=== PATIENT | male | born 1965 | race American Indian/Alaskan Native ===

== ENCOUNTER 2017-10-29 12:07 | Emergency (ER) | payer OTHER ==
[2017-10-29 12:55] VITALS: BP 177/99
[2017-10-29 13:13] LABS: Basophils # (Auto) 0.1 K/mm3 (0.0-0.1); Basophils % (Auto) 0.8 % (0.0-1.8); Eosinophils # (Auto) 0.4 K/mm3 (0.0-0.4); Eosinophils % (Auto) 4.9 % (0.0-4.3); Hematocrit 46.4 % (35.5-45.6); Hemoglobin 15.8 gm/dl (11.8-15.2); Lymphocytes # (Auto) 3.5 K/mm3 (1.2-5.4); Lymphocytes % (Auto) 46.8 % (13.4-35.0); Mean Corpuscular HGB Conc 34 % (32-34); Mean Corpuscular Hemoglobin 31 pg (28-32); Mean Corpuscular Volume 92 fl (84-94); Monocytes # (Auto) 0.5 K/mm3 (0.0-0.8); Monocytes % (Auto) 6.7 % (0.0-7.3); Platelet Count 358 K/mm3 (140-440); Red Blood Count 5.05 M/mm3 (3.65-5.03); Red Cell Distribution Width 13.3 % (13.2-15.2)
[2017-10-29 13:34] LABS: BUN/Creatinine Ratio 15; Blood Urea Nitrogen 12 mg/dL (9-20); Calcium 9.2 mg/dL (8.4-10.2); Hemolysis Index 4
[2017-10-29] MEDS ORDERED: CATAPRES PO ONE (15:18)
--- NOTE | 2017-10-29 15:45 | Emergency Department Report ---
HPI - General Chief Complaint: Dizziness Time Seen by Provider: 10/29/17 14:55 - HPI HPI: The patient is a 52-year-old male presents for evaluation of dizziness. The patient has a history of hypertension, noncompliant with medication regimen. The patient reports dizziness for the past 3 days, mild in severity, exacerbated with position changes or standing, improved with supine position and rest. The patient denies fever, headache, neck pain, paresthesias, focal motor weakness, ear pain, tinnitus, chest pain, hemoptysis, dyspnea, abdominal pain, confusion or altered mental status, or recent URI or diarrhea. ED Past Medical Hx - Past Medical History Previous Medical History?: Yes Hx Hypertension: Yes - Surgical History Past Surgical History?: Yes Additional Surgical History: tonsillectomy - Social History Smoking Status: Current Every Day Smoker Substance Use Type: Alcohol, Marijuana, Prescribed - Medications Home Medications: Home Medications Medication Instructions Recorded Confirmed Last Taken Type HYDROcodone/APAP 5-325 [[place] 1 each PO Q6HR PRN #20 tablet 10/17/15 Unknown Rx 5/325] amLODIPine [Norvasc] 10 mg PO DAILY 10/17/15 10/17/15 10/16/15 History Hydrochlorothiazide [HCTZ] 25 mg PO QDAY #30 tablet 10/29/17 Unknown Rx amLODIPine [Norvasc] 5 mg PO DAILY #31 tab 10/29/17 Unknown Rx ED Review of Systems ROS: Stated complaint: DIZZY/SEEING SPOTS Other details as noted in HPI Constitutional: Reports dizziness denies: fever ENT: denies: throat or neck pain Respiratory: denies: cough, shortness of breath Cardiovascular: denies: chest pain Endocrine: denies unexplained weight loss or gain Gastrointestinal: denies: abdominal pain, nausea Genitourinary: denies: dysuria Musculoskeletal: denies: leg swelling Skin: denies: rash Neurological: denies: headache Hematological/Lymphatic: denies: easy bleeding or easy bruising Psych: denies sadness or hopelessness Physical Exam - Physical Exam Vital Signs: Vital Signs 10/29/17 12:51 Temperature 98.4 F Pulse Rate 64 Respiratory 18 Rate Blood Pressure 177/99 O2 Sat by Pulse 98 Oximetry Physical Exam: General: well-nourished, well-developed, no acute distress Head: Normocephalic, atraumatic Eyes: normal sclera EOMI, PERRL no nystagmus, ENT: Mucous membranes are pale and dry Neck: trachea midline, neck supple, No neck stiffness, no cervical adenopathy Respiratory: Breath sounds equal bilaterally, no wheezing, rales, or rhonchi Cardio: S1 and S2 present, no murmurs, rubs, gallops, capillary refill is delayed Abdomen: Normoactive bowel sounds, soft abdomen, no rigidity, no guarding or rebound tenderness Musc: No pitting edema Skin: No rash Neuro: alert oriented x4, normal cognition, speech normal, no facial drooping, no uvula or tongue deviation on protrusion, no deficit with rotation of neck or shoulder shrug, no obvious gross motor deficit in the upper or lower extremities with flexion or extension at the shoulder, elbow, wrist, hip, knee, or ankle bilaterally, no obvious gross sensation deficit to crude touch or 2 pt discrimination, 2+ symmetric reflexes on DTR testing, no coordination deficit with eupqgt-tq-lwhk or verz-yn-cmgi testing, romberg negative, patient able to to ambulate without abnormal gait Psych: Normal affect ED Course Vital Signs 10/29/17 12:51 Temperature 98.4 F Pulse Rate 64 Respiratory 18 Rate Blood Pressure 177/99 O2 Sat by Pulse 98 Oximetry ED Medical Decision Making - Lab Data Result diagrams: 10/29/17 13:03 10/29/17 13:03 - Medical Decision Making The patient was seen and examined by myself. The patient is placed on a incident response analyst and continuous pulse ox. On initial evaluation, the patient was found to be in no distress. Evaluation orders were placed. The patient given a tablet of clonidine for treatment of his elevated blood pressure. Lab results reveal elevated hemoglobin and hematocrit, consistent with hemoconcentration and exam findings of dehydration, and otherwise labs were grossly unremarkable. The patient declined normal saline fluid bolus for treatment of his dehydration. The patient was reevaluated and reported that their symptoms were markedly improved. The patient is stable for discharge with outpatient follow- up. The patient is given follow-up and return instructions. The patient expressed understanding and agreed with the plan. The patient is discharged in stable condition. Critical care attestation.: If time is entered above; I have spent that time in minutes in the direct care of this critically ill patient, excluding procedure time. ED Disposition Clinical Impression: Orthostatic dizziness, Hypertensive urgency Disposition: [id number] TO HOME OR SELFCARE Is pt being admited?: No Does the pt Need Aspirin: No Condition: Stable Instructions: Hypertension (ED), Chronic Hypertension (ED), Dizziness (ED) Prescriptions: amLODIPine [Norvasc] 5 mg PO DAILY #31 tab Hydrochlorothiazide [HCTZ] 25 mg PO QDAY #30 tablet Referrals: PRIMARY CARE [Primary Care Provider] - 3-5 Days Time of Disposition: 15:41
[2017-10-29 17:11] LABS: Bilirubin,Urine NEG (Negative); Blood,Urine NEG (Negative); Color,Urine Yellow (Yellow); Mucus,Urine FEW /HPF; Protein,Urine <15 mg/dL mg/dL (Negative); Urobilinogen,Urine < 2.0 mg/dL (<2.0)
[2017-10-29 22:23] LABS: WBC,Urine < 1.0 /HPF (0.0-6.0)
== END 2017-10-29 15:49 | disposition home or self-care (01) ==
LOC: ED 12:07
DX: I10 Essential (primary) hypertension (principal); R42 Dizziness and giddiness; F17.200 Nicotine dependence, unspecified, uncomplicated
CPT/HCPCS: 36415; 80048; 81001; 84484; 85025; 93005; 93010; 99283

== ENCOUNTER 2017-12-22 17:58 | Emergency (ER) | payer OTHER ==
[2017-12-22] MEDS ORDERED: MOTRIN PO ONE (22:31)
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
[2017-12-22 22:55] VITALS: BP 160/92
== END 2017-12-22 23:41 | disposition home or self-care (01) ==
LOC: ED 17:58
DX: S16.1XXA Strain of muscle, fascia and tendon at neck level, initial encounter (principal); M54.5 Low back pain; M62.838 Other muscle spasm; M25.521 Pain in right elbow; M25.561 Pain in right knee; M25.562 Pain in left knee; I10 Essential (primary) hypertension; F17.200 Nicotine dependence, unspecified, uncomplicated; Z90.89 Acquired absence of other organs; V89.2XXA Person injured in unspecified motor-vehicle accident, traffic, initial encounter; Y93.89 Activity, other specified; Y99.8 Other external cause status; Y92.410 Unspecified street and highway as the place of occurrence of the external cause
CPT/HCPCS: 99282

== ENCOUNTER 2021-02-25 15:11 | Emergency (ER) | payer SELFPAY ==
[2021-02-25] MEDS ORDERED: TETANUS,DIPH,PERTUSS(ACELL) VACCINE 0.5 ML SYRINGE IM ONE (17:16)
[2021-02-25] MEDS ORDERED: HYDROcodone/ACETAMINOPHEN 10-325MG TAB PO ONE (17:16)
[2021-02-25 17:33] VITALS: BP 162/88
--- NOTE | 2021-02-25 17:33 | Emergency Department Report ---
ED Laceration HPI - HPI Chief Complaint: Wound/Laceration Stated Complaint: HAND CUT Time Seen by Provider: 02/25/21 17:06 Occurred When: Today Location: Upper Extremity Severity: mild Tetanus Status: Not up to Date Laceration Symptoms: Yes Pain, No Foreign Body Sensation, No Numbness, No Weakness Other History: This is a 55-year-old male nontoxic, well nourished in appearance, no acute signs of distress presents to the ED with c/o of left middle finger laceration. Patient stated he was throwing away a toilet and cut his finger. Patient denies decreased sensation or range of motion. Patient stated bleeding is under control. Denies any numbness, tingling, fever, chills, nausea, vomiting, chest pain, shortness of breath, headache or stiff neck. Patient denies any allergies to significant past medical history. Patient is that he is not up-to-date with tetanus. ED Review of Systems ROS: Stated complaint: HAND CUT Other details as noted in HPI Constitutional: denies: chills, fever Eyes: denies: eye pain, eye discharge, vision change ENT: denies: ear pain, throat pain Respiratory: denies: cough, shortness of breath, wheezing Cardiovascular: denies: chest pain, palpitations Endocrine: no symptoms reported Gastrointestinal: denies: abdominal pain, nausea, diarrhea Genitourinary: denies: urgency, dysuria Musculoskeletal: denies: back pain, joint swelling, arthralgia Skin: denies: rash, lesions Neurological: denies: headache, weakness, paresthesias Psychiatric: denies: anxiety, depression Hematological/Lymphatic: denies: easy bleeding, easy bruising ED Past Medical Hx - Past Medical History Previous Medical History?: No Hx Hypertension: Yes - Surgical History Past Surgical History?: Yes Additional Surgical History: tonsillectomy - Social History Smoking Status: Current Every Day Smoker Substance Use Type: Alcohol - Medications Home Medications: Home Medications Medication Instructions Recorded Confirmed Last Taken Type HYDROcodone/APAP 5-325 [[place] 1 each PO Q6HR PRN #20 tablet 10/17/15 Unknown Rx 5/325] amLODIPine [Norvasc] 10 mg PO DAILY 10/17/15 10/17/15 10/16/15 History amLODIPine [Norvasc] 5 mg PO DAILY #31 tab 03/14/18 Unknown Rx hydroCHLOROthiazide [HCTZ] 25 mg PO QDAY #30 tablet 10/29/17 Unknown Rx Cyclobenzaprine [Flexeril] 10 mg PO TID PRN #12 tablet 12/22/17 Unknown Rx Ibuprofen [Motrin] 600 mg PO Q8H PRN #12 tablet 12/22/17 Unknown Rx Acetaminophen/Codeine [Tylenol 1 tab PO Q6H PRN #12 tab 02/25/21 Unknown Rx /Codeine # 3 tab] Sulfamethoxazole/Trimethoprim 1 each PO BID #14 tablet 02/25/21 Unknown Rx [Bactrim DS TAB] Laceration Physical Exam - Exam General: Vital signs noted. No distress. Alert and acting appropriately. Wound Length (cm): 4 (Irregular flap to left middle finger distal) Laceration Location: Upper Extremity Laceration Exam: Yes Normal Distal CMS, No Foreign Body, No Exposed Tendon, Vessel, or Nerve, No Tendon Injury ED Course Vital Signs 02/25/21 16:23 Temperature 98.6 F Pulse Rate 89 Respiratory 18 Rate Blood Pressure 162/88 O2 Sat by Pulse 98 Oximetry - Reevaluation(s) Reevaluation #1: 02/25/21 17:32 Patient is speaking in full sentences with no signs of distress noted. - Laceration /Wound Repair Left Finger Wound Location: upper extremity (Left middle finger) Wound Length (cm): 4 Wound's Depth, Shape: flap Wound Explored: clean Irrigated w/ Saline (ccs): 40 Betadine Prep?: Yes Anesthesia: 1% Lidocaine Volume Anesthetic (ccs): 6 (Plain) Wound Repaired With: sutures Suture Size/Type: 5:0, proline Number of Sutures: 8 Layer Closure?: Yes Deep Layer Suture Size/Type: 4:0 (Vicryl) Number Deep Layer Sutures: 3 Sterile Dressing Applied?: Yes Progress: Under sterile field, I used Betadine to clean the area. I then used 40 mL of normal saline to flush the area. I then used 1% lidocaine plain and injected 6 mL to the wound. I then used 4-0 Vicryl with total of 3 stitches placed for deeper dermis. I then used a 5-0 Prolene to suture the laceration. Number of stitches 8. I then applied a sterile 4 x 4 with tape with a finger frog splint. Post splint assessment: neurovasular intact; normal cap refill <2 second; normal sensation; denies decreaed sensation; normal ROM of digits. Minimal bleeding noted but is under control. Patient tolerated procedure well with no signs of distress. ED Medical Decision Making - Radiology Data [facility] [address] [place] [address] XRay Report Signed Patient: CARMELINA ALVAREZ MR#: [id number] : 1965 Acct:[id number] Age/Sex: 55 / M ADM Date: 02/25/21 Loc: ED Attending Dr: Ordering Physician: REHAN PICKERING NP Date of Service: 02/25/21 Procedure(s): XR finger(s) 2+V LT Accession Number(s): [id number] cc: REHAN PICKERING NP Fluoro Time In Minutes: LEFT MIDDLE FINGER 3 VIEWS INDICATION / CLINICAL INFORMATION: Laceration involving the third digit of the left-hand.. COMPARISON: None available. FINDINGS: BONES / JOINT(S): There is a small curvilinear ossific density involving the base of the middle phalanx of the middle finger along the volar surface which may be related to acute or chronic avulsion injury. There are mild degenerative changes involving the DIP joint of the ring finger. SOFT TISSUES: There is localized soft tissue irregularity along the palmar surface of the distal middle finger at the level of the distal phalanx consistent with a laceration. No radiopaque foreign body is seen. ADDITIONAL FINDINGS: None. Signer Name: Javier Stephenson MD Signed: 02/25/2021 5:43 PM Workstation Name: [id number] Transcribed By: RT Dictated By: Javier Stephenson MD Electronically Authenticated By: Javier Stephenson MD Signed Date/Time: 02/25/211742 DD/ 40 TD/TT: - Medical Decision Making This is a 55-year-old male that presents with laceration. Patient is stable and was examined by me. Physical exam does not show any foreign body. The lac eration suturing has been performed and has been performed and patient tolerated well. A sterile dressing has been applied. Patient was educated on proper wound care. Patient is discharged with Bactrim. Patient was instructed to return in 10 days for suture removal. Patient was instructed to refer to Follow-up with a primary care doctor in 3-5 days or if symptoms worsen and continue return to emergency room as soon as possible. At time of discharge, the patient does not seem toxic or ill in appearance. No acute signs of distress noted. Patient agrees to discharge treatment plan of care. No further questions noted by the patient. Critical care attestation.: If time is entered above; I have spent that time in minutes in the direct care of this critically ill patient, excluding procedure time. ED Disposition Clinical Impression: Laceration of left middle finger Qualifiers: Encounter type: initial encounter Damage to nail status: without damage Foreign body presence: without foreign body Qualified Code(s): S61.213A - Laceration without foreign body of left middle finger without damage to nail, initial encounter Disposition: TO HOME OR SELFCARE Is pt being admited?: No Does the pt Need Aspirin: No Condition: Stable Instructions: Laceration Care, Adult Additional Instructions: Follow-up with a primary care doctor in 3-5 days or if symptoms worsen and continue return to emergency room as soon as possible. Return in 10 days for suture removal. No physical activity that extremity until suture removal and cleared by provider. Prescriptions: Sulfamethoxazole/Trimethoprim [Bactrim DS TAB] 1 each PO BID #14 tablet Acetaminophen/Codeine [Tylenol /Codeine # 3 tab] 1 tab PO Q6H PRN #12 tab PRN Reason: Pain , Severe (7-10) Referrals: PRIMARY CAREMD [Primary Care Provider] - 3-5 Days JULIO ABREU MD [Staff Physician] - 3-5 Days Time of Disposition: 18:48
--- NOTE | 2021-02-25 17:48 | XRay Report ---
LEFT MIDDLE FINGER 3 VIEWS INDICATION / CLINICAL INFORMATION: Laceration involving the third digit of the left-hand.. COMPARISON: None available. FINDINGS: BONES / JOINT(S): There is a small curvilinear ossific density involving the base of the middle phala nx of the middle finger along the volar surface which may be related to acute or chronic avulsion inj ury. There are mild degenerative changes involving the DIP joint of the ring finger. SOFT TISSUES: There is localized soft tissue irregularity along the palmar surface of the distal midd le finger at the level of the distal phalanx consistent with a laceration. No radiopaque foreign body is seen. ADDITIONAL FINDINGS: None. Signer Name: Javier Stephenson MD Signed: 02/25/2021 5:43 PM Workstation Name: [id number]
== END 2021-02-25 19:01 | disposition home or self-care (01) ==
LOC: ED 15:11
DX: S61.312A Laceration without foreign body of right middle finger with damage to nail, initial encounter (principal); I10 Essential (primary) hypertension; Z90.89 Acquired absence of other organs; F17.200 Nicotine dependence, unspecified, uncomplicated; Z72.89 Other problems related to lifestyle; Z79.899 Other long term (current) drug therapy; W26.8XXA Contact with other sharp object(s), not elsewhere classified, initial encounter; Y93.89 Activity, other specified; Y92.89 Other specified places as the place of occurrence of the external cause; Y99.8 Other external cause status
CPT/HCPCS: 90471; 90715; 99283

== ENCOUNTER 2021-03-13 07:52 | Emergency (ER) | payer SELFPAY ==
[2021-03-13 08:12] VITALS: BP 210/118
--- NOTE | 2021-03-13 09:36 | Emergency Department Report ---
Suture/Staple Removal - [facility] Chief Complaint: Laceration/Recheck/Suture Stated Complaint: suture removal Time Seen by Provider: 03/13/21 09:20 ED Review of Systems ROS: Stated complaint: suture removal Other details as noted in HPI ED Past Medical Hx - Past Medical History Previous Medical History?: Yes Hx Hypertension: Yes - Surgical History Past Surgical History?: Yes Additional Surgical History: tonsillectomy - Social History Smoking Status: Current Every Day Smoker Substance Use Type: Alcohol - Medications Home Medications: Home Medications Medication Instructions Recorded Confirmed Last Taken Type HYDROcodone/APAP 5-325 [Kinzers 1 each PO Q6HR PRN #20 tablet 10/17/15 Unknown Rx 5/325] amLODIPine [Norvasc] 10 mg PO DAILY 10/17/15 10/17/15 10/16/15 History amLODIPine [Norvasc] 5 mg PO DAILY #31 tab 10/29/17 Unknown Rx hydroCHLOROthiazide [HCTZ] 25 mg PO QDAY #30 tablet 10/29/17 Unknown Rx Cyclobenzaprine [Flexeril] 10 mg PO TID PRN #12 tablet 12/22/17 Unknown Rx Ibuprofen [Motrin] 600 mg PO Q8H PRN #12 tablet 12/22/17 Unknown Rx Acetaminophen/Codeine [Tylenol 1 tab PO Q6H PRN #12 tab 02/25/21 Unknown Rx /Codeine # 3 tab] Sulfamethoxazole/Trimethoprim 1 each PO BID #14 tablet 02/25/21 Unknown Rx [Bactrim DS TAB] Suture Removal Exam - Exam General: Vital signs noted. No distress. Alert and acting appropriately. Other Systems: All other systems reviewed and are unremarkable. ED Course Vital Signs 03/13/21 08:10 Temperature 98.3 F Pulse Rate 76 Respiratory 20 Rate Blood Pressure 210/118 O2 Sat by Pulse 100 Oximetry Critical care attestation.: If time is entered above; I have spent that time in minutes in the direct care of this critically ill patient, excluding procedure time. ED Disposition Clinical Impression: Visit for suture removal Disposition: -01 TO HOME OR SELFCARE Is pt being admited?: No Does the pt Need Aspirin: No Condition: Stable Instructions: Incision Care, Adult, [id number] Additional Instructions: PLease keep clean Referrals: PRIMARY CARE [Primary Care Provider] - 3-5 Days Time of Disposition: 09:21
== END 2021-03-13 10:16 | disposition home or self-care (01) ==
LOC: ED 07:52
DX: S61.213D Laceration without foreign body of left middle finger without damage to nail, subsequent encounter (principal); X58.XXXD Exposure to other specified factors, subsequent encounter